=== PATIENT | male | born 1960 | race African-American/Black ===

== ENCOUNTER 2017-09-28 22:41 | Emergency (ER) | payer SELFPAY ==
[~2017-09-28] VITALS: Ht 175.3 cm; Wt 96.0 kg
[2017-09-29] MEDS ORDERED: KETOROLAC 30MG/ML VIAL IM ONE (04:00)
[2017-09-29 05:00] VITALS: BP 146/74
== END 2017-09-29 05:20 | disposition home or self-care (01) ==
LOC: ER 22:41
DX: M54.5 Low back pain (principal)
CPT/HCPCS: 96372; 99283; J1885; J7030; Z7610